=== PATIENT | male | born 1985 | race Caucasian/White ===

== ENCOUNTER 2020-05-13 19:25 | Emergency (ER) | payer OTHER ==
[2020-05-13] MEDS ORDERED: DIPHTH,PERTUSS(ACELL),TET 0.5 ML DISP.SYRIN IM ONE ×2 (19:31→19:48)
--- NOTE | 2020-05-13 19:31 | PDOC ---
Rapid Medical Evaluation Time Seen by Provider: 05/13/20 19:29 Medical Evaluation: 05/13/20 19:29 I have performed a brief in-person evaluation of this patient. CC: lac to left index finger PE: ~3cm superficial linear laceration to medial aspect of left index finger. FROM L index finger. Orders: boostrix Patient to proceed to ED for further evaluation. 05/13/20 19:30 Discharge Disposition - Diagnosis Finger laceration - Referrals - Patient Instructions - Post Discharge Activity
[2020-05-13 19:33] VITALS: BP 122/89; PULSE 76; TEMP 98.4; BMI 34.0
--- NOTE | 2020-05-13 19:59 | PDOC ---
History of Present Illness - General Chief Complaint: Injury Stated Complaint: LAC Time Seen by Provider: 05/13/20 19:29 History Source: Patient Exam Limitations: No Limitations - History of Present Illness Initial Comments: 05/13/20 19:54 35-year-old male past medical history of seizures presenting the ED with laceration to left pointer finger. Patient states he was using a aging box hand and cut his left pointer finger immediately prior pressure washed out and came immediately to the ED. Patient is not up-to-date on tetanus. Denies numbness tingling loss of sensation and loss of range of motion. Pt otherwise denies: fevers, chills, syncope, lightheadedness, dizziness, headaches, neck pain, chest pain. Past History - Medical History Allergies/Adverse Reactions: Allergies Allergy/AdvReac Type Severity Reaction Status Date / Time No Known Allergies Allergy Verified 05/13/20 19:33 COPD: No Other medical history: seizure - Psycho-Social/Smoking History Smoking History: Never smoked - Substance Abuse Hx (Audit-C & DAST Scrn) How often the patient has a drink containing alcohol: Never Score: In Men: 4 or > Positive; In Women: 3 or > Positive: 0 Screen Result (Pos requires Nsg. Audit-10AR): Negative In the last yr the pt used illegal drug/Rx for NonMed reason: No Score: Yes response is considered Positive: 0 Screen Result (Positive result requires Nsg. DAST-10): Negative *Physical Exam - Vital Signs Last Vital Signs Temp Pulse Resp BP Pulse Ox 98.4 F 76 19 122/89 97 05/13/20 19:28 05/13/20 19:28 05/13/20 19:28 05/13/20 19:28 05/13/20 19:28 - Physical Exam 05/13/20 19:55 Gen: AAOx 3, no acute distress, comfortable, no signs of respiratory distress HENT: atraumatic, normocephalic with no laceration or contusion. Nasal mucosa without erythema. Oropharynx without erythema or exudates. Mucous membranes moist. EYES: PERRL, EOM intact, conjunctiva pink NECK: supple; trachea midline; no JVD, no lymphadenopathy, or thyromegaly CV: RRR no murmurs, gallops, or rubs. CHEST: CTA b/l no wheezing, rales or rhonchi ABD: +BS/ND. no TTP; soft, no rebound, no guarding EXTREMITY: no cyanosis or erythema. 2+ dorsalis pedis, posterior tibial, and radial pulse. No pedal edema; no calf swelling or tenderness L hand: 3cm laceration to 2nd digit SILT FROM MS: 5/5 strength in all extremities, FROM intact in all extremities. ED Treatment Course - Medications Given in the ED: ED Medications Discontinued Medications Generic Name Dose Route Start Last Admin Trade Name Freq PRN Reason Stop Dose Admin Diphtheria/Tetanus/Acell Pertussis 0.5 ml 05/13/20 19:31 05/13/20 19:52 Boostrix - IM 05/13/20 19:32 0.5 ml .ONCE ONE Administration Medical Decision Making - Medical Decision Making 05/13/20 19:55 35-year-old male left hand laceration Vital signs stable Will update tetanus Will repair laceration Laceration repaired by [email or web address] please refer to procedure note, tolerated procedure well, PMS intact before and after procedure Pt to return to ED for suture removal in 7 days. Patient is safe and stable for discharge Supportive care instructions explained and given to pt. Reasons to return emergently to ER explained and given. Importance of follow up with PMD and other specialists as indicated stressed to pt. Pt verbalized understanding of instructions. Pt to follow up with PMD in 2 days. Discharge - Discharge Information Problems reviewed: Yes Clinical Impression/Diagnosis: Finger laceration Qualifiers: Encounter type: initial encounter Finger: index finger Damage to nail status: without damage Foreign body presence: without foreign body Laterality: left Qualified Code(s): S61.211A - Laceration without foreign body of left index finger without damage to nail, initial encounter Condition: Stable Disposition: HOME - Admission No - Follow up/Referral - Patient Discharge Instructions Patient Printed Discharge Instructions: DI for Laceration Repair -- Finger Additional Instructions: Return for suture removal in 7 days - Post Discharge Activity
== END 2020-05-13 20:43 | disposition home or self-care (01) ==
LOC: JERFT 19:25
PROC: 3E0234Z Introduction of Serum, Toxoid and Vaccine into Muscle, Percutaneous Approach (ICD-10-PCS; principal; 2020-05-13)
DX: S61.211A Laceration without foreign body of left index finger without damage to nail, initial encounter (principal)
CPT/HCPCS: 90715; 99284-25